=== PATIENT | female | born 1955 | race Caucasian/White ===

== ENCOUNTER 2017-06-20 10:35 | Inpatient (IN) | payer BC ==
[~2017-06-20] VITALS: Ht 160 cm; Wt 44.0 kg
[~2017-06-20 10:35] MED LIST: ALBUTEROL0.83 MG/ML IH; ALDACTONE 25MG25 M1 PO; CYMBALTA 60MG60 MG PO; LASIX 40MG TABL40 MG PO; LOPRESSOR 225 MG/TAB PO; NORCO 325 MG-51 TAB PO; PRILOSEC 20MG20 MG PO; PROAIR HFA0.09 MG/AC IH; ZESTRIL2.5 MG PO
[2017-06-20 16:06] VITALS: BP 110/70; PULSE 113; TEMP 97.9
[2017-06-20 18:00] VITALS: BP 110/70; PULSE 113; TEMP 97.9
[2017-06-20] MEDS ORDERED: ASPIRIN 81M81 MG/TA2 PO (23:52)
[2017-06-20] MEDS ORDERED: NATURAL IRON65 MG PO (23:53)
[2017-06-20] MEDS ORDERED: REMERON 15M15 MG/TA1 PO (23:55)
[2017-06-20] MEDS ORDERED: MEGACE ORAL40 MG/ML PO (23:58)
[2017-06-21] MEDS ORDERED: SODIUM BICARBO650 MG PO
[2017-06-21] MEDS ORDERED: NORCO2.5 PO (00:02)
[2017-06-21] MEDS ORDERED: KLOR-CON SPRIN10 MEQ PO (00:04)
[2017-06-21] MEDS ORDERED: TOPROL XL 25MG25 MG PO (00:21)
[2017-06-21 03:26] VITALS: BP 132/78; PULSE 92; TEMP 98.1
[2017-06-21 18:50] VITALS: BP 131/77; PULSE 89; TEMP 98.2
[2017-06-22 04:16] VITALS: BP 119/66; PULSE 93; TEMP 100
[2017-06-22 05:33] LABS: BASO % 0.2 % (0.0-2.0); EOS # 0.1 (0.0-0.7); GRAN % 79.7 % (42.2-75.2); LYMPH # 1.5 (1.2-3.4); LYMPH % 12.3 % (20.0-51.0); MEAN CELL VOLUME 103 fl (80.0-100.0); MEAN CORPUSCULAR HGB CONC 29 g/dl (33.0-37.0); MEAN PLATELET VOLUME 10.5 fl (7.4-10.4); MONO # 0.5 (0.1-0.6); MONO % 4.2 % (1.7-9.3); PLATELET COUNT 320 K/mm3 (130-400); RED BLOOD COUNT 2.57 M/mm3 (4.10-5.30); REDCELL DISTRIBUTION WIDTH-CV 26.6 % (11.5-14.5); WHITE BLOOD COUNT 12.5 K/mm3 (4.8-10.8)
[2017-06-22 05:39] LABS: HEMATOCRIT 26.5 % (37.0-47.0); HEMOGLOBIN 7.8 g/dl (12.5-16.0); MEAN CORPUSCULAR HEMOGLOBIN 30 pg (27.0-31.0)
[2017-06-22 05:42] LABS: ADJUSTED CALCIUM 9.5 mg/dL (8.4-10.2); BILIRUBIN,TOTAL 0.3 mg/dL (0.0-1.0); CALCIUM 7.9 mg/dL (8.4-10.2); CREATININE, serum 0.78 mg/dL (0.52-1.25); MAGNESIUM 1.6 mg/dL (1.6-2.3); POTASSIUM 5.3 mmol/L (3.4-5.0); TOTAL PROTEIN 4.3 gm/dL (6.4-8.2)
[2017-06-22 15:44] VITALS: BP 123/63; PULSE 98; TEMP 98.2
[2017-06-23 06:08] VITALS: BP 124/70; PULSE 91; TEMP 98.8
[2017-06-23 17:59] VITALS: BP 148/81; PULSE 103; TEMP 98.3
[2017-06-24 04:41] VITALS: BP 129/84; PULSE 92; TEMP 98.3
[2017-06-24 04:56] VITALS: BP 129/84; PULSE 92; TEMP 98.3
[2017-06-24 06:34] LABS: MEAN CELL VOLUME 104 fl (80.0-100.0); MEAN CORPUSCULAR HGB CONC 31 g/dl (33.0-37.0); MEAN PLATELET VOLUME 10.1 fl (7.4-10.4); PLATELET COUNT 406 K/mm3 (130-400); RED BLOOD COUNT 2.57 M/mm3 (4.10-5.30); WHITE BLOOD COUNT 10.8 K/mm3 (4.8-10.8)
[2017-06-24 06:38] LABS: HEMATOCRIT 26.7 % (37.0-47.0); HEMOGLOBIN 8.2 g/dl (12.5-16.0); MEAN CORPUSCULAR HEMOGLOBIN 32 pg (27.0-31.0)
[2017-06-24 06:39] LABS: ADD PATHOLOGY DIFF REVIEW NO
[2017-06-24 06:53] LABS: CALCIUM 8.3 mg/dL (8.4-10.2); CREATININE, serum 0.71 mg/dL (0.52-1.25); MAGNESIUM 1.8 mg/dL (1.6-2.3); POTASSIUM 4.8 mmol/L (3.4-5.0)
[2017-06-24 07:14] LABS: BAND 2 % (0-10); NEUTROPHILS 79 % (42.0-75.2); PLATELET ESTIMATE NORMAL (NORMAL); TOTAL CELLS COUNTED 100
[2017-06-24 18:44] VITALS: BP 126/68; PULSE 110; TEMP 98.6
[2017-06-25 04:33] VITALS: BP 135/82; PULSE 93; TEMP 98.8
[2017-06-25 16:15] VITALS: BP 119/71; PULSE 103; TEMP 99
[2017-06-26 03:37] VITALS: BP 128/71; PULSE 97; TEMP 97.7
[2017-06-26 17:31] VITALS: BP 123/61; PULSE 92; TEMP 99.6
[2017-06-27 05:40] VITALS: BP 135/68; PULSE 86; TEMP 99.4
[2017-06-27 15:48] VITALS: BP 123/66; PULSE 92; TEMP 100.2
[2017-06-28 04:20] VITALS: BP 128/73; PULSE 89; TEMP 99.1
[2017-06-28 16:37] VITALS: BP 145/80; PULSE 87; TEMP 98.5
[2017-06-29 06:14] VITALS: BP 151/81; PULSE 89; TEMP 100.4
[2017-06-29 16:08] VITALS: BP 149/75; PULSE 82; TEMP 99.1
[2017-06-30 06:14] VITALS: BP 163/72; PULSE 80; TEMP 98.5
[2017-06-30 16:43] VITALS: BP 152/83; PULSE 89; TEMP 99.4
[2017-07-01 06:13] VITALS: BP 150/75; PULSE 80; TEMP 99.2
[2017-07-01 08:06] LABS: MEAN CELL VOLUME 109 fl (80.0-100.0); MEAN CORPUSCULAR HGB CONC 30 g/dl (33.0-37.0); MEAN PLATELET VOLUME 9.7 fl (7.4-10.4); PLATELET COUNT 763 K/mm3 (130-400); RED BLOOD COUNT 3.05 M/mm3 (4.10-5.30); WHITE BLOOD COUNT 7.5 K/mm3 (4.8-10.8)
[2017-07-01 08:07] LABS: HEMATOCRIT 33.2 % (37.0-47.0); HEMOGLOBIN 10.1 g/dl (12.5-16.0); MEAN CORPUSCULAR HEMOGLOBIN 33 pg (27.0-31.0)
[2017-07-01 08:09] LABS: ADD PATHOLOGY DIFF REVIEW NO
[2017-07-01 08:19] LABS: CALCIUM 8.2 mg/dL (8.4-10.2); CREATININE, serum 0.6 mg/dL (0.52-1.25); POTASSIUM 4.7 mmol/L (3.4-5.0)
[2017-07-01 09:21] LABS: BAND 8 % (0-10); EOSINOPHIL 3 % (0-4); METAMYELOCYTE 1 % (0-0); NEUTROPHILS 65 % (42.0-75.2); PLATELET ESTIMATE INCREASED (NORMAL); TOTAL CELLS COUNTED 100
[2017-07-01 17:20] VITALS: BP 156/80; PULSE 90; TEMP 98
[2017-07-01] MEDS ORDERED: NICODERM C14 MG/PATC TD (18:47)
[2017-07-01] MEDS ORDERED: ZOLOFT 50MG50 MG PO (18:48)
[2017-07-01] MEDS ORDERED: ATARAX 25MG25 MG/TAB PO (18:49)
[2017-07-01] MEDS ORDERED: SILVADEN TP (18:59)
[2017-07-01] MEDS ORDERED: MAG-OX 400400 MG/TAB PO (19:02)
[2017-07-01] MEDS ORDERED: SODIUM BICARBO650 MG PO (19:04)
[2017-07-01] MEDS ORDERED: MEGACE ORAL40 MG/ML PO (19:05)
[2017-07-02 04:36] VITALS: BP 140/74; PULSE 80; TEMP 99.3
[2017-07-02] MEDS ORDERED: NORCO 325 MG-7.1 TAB PO (14:56)
== END 2017-07-02 15:55 | disposition home health service (06) | DRG 947 ==
PROVIDERS: Internal Medicine; Nurse Practitioner Family
DX: R53.81 Other malaise (principal); A41.9 Sepsis, unspecified organism; R65.21 Severe sepsis with septic shock; E43 Unspecified severe protein-calorie malnutrition; E87.2 Acidosis; K81.0 Acute cholecystitis; N17.9 Acute kidney failure, unspecified; Z68.1 Body mass index [BMI] 19.9 or less, adult; E86.0 Dehydration; I10 Essential (primary) hypertension; I73.9 Peripheral vascular disease, unspecified; Z95.820 Peripheral vascular angioplasty status with implants and grafts; E11.9 Type 2 diabetes mellitus without complications; F17.210 Nicotine dependence, cigarettes, uncomplicated; J44.9 Chronic obstructive pulmonary disease, unspecified; F41.1 Generalized anxiety disorder; F41.0 Panic disorder [episodic paroxysmal anxiety]; F32.9 Major depressive disorder, single episode, unspecified
CPT/HCPCS: 90791-AI; 99223-AI; 99232-AI; 99233-AI; 99239; A9284; J1815